=== PATIENT | female | born 1995 | race Caucasian/White ===

== ENCOUNTER → 2017-11-26 | Outpatient (CLI) | payer OTHER | END | disposition home or self-care (01) | LOC: US 12:21 | DX: O26.842 Uterine size-date discrepancy, second trimester (principal); Z3A.20 20 weeks gestation of pregnancy | CPT/HCPCS: 76805 ==

== ENCOUNTER 2018-04-11 06:07 | Inpatient (IN) | payer OTHER ==
[2018-04-10] MEDS: IV RINGERS,LACTATED 1000ML 1,000 ML IV SCH (21:45)
[~2018-04-11 06:07] MED LIST: DOCU-109 PO; IBUP-1060 PO; OXYC-323 PO; PNV1TABL25 PO
[2018-04-11] MEDS ORDERED: IV RINGERS,LACTATED 1000ML 1,000 ML IV SCH (06:45)
[2018-04-11] MEDS: IV RINGERS,LACTATED 1000ML 1,000 ML IV SCH ×2 (06:45→14:45)
[2018-04-11] MEDS ORDERED: OXYTOCIN 30 UNIT/500 ML PREMIX 500 ML IV PRN ×2 (06:45→09:00)
[2018-04-11] MEDS ORDERED: CITRIC ACID/SODIUM CITRATE 30 ML SOLUTION. PO PRN (06:45)
[2018-04-11] MEDS ORDERED: 0.9 % SODIUM CHLORIDE 10 ML DISP.SYRIN. IV PRN ×2 (06:45→09:00)
[2018-04-11 07:18] VITALS: BP 121/82
[2018-04-11] MEDS ORDERED: FAMOTIDINE 20 MG/2 ML VIAL ONE (07:20)
[2018-04-11] MEDS ORDERED: OXYTOCIN 10 UNIT/ML VIAL. ONE ×3 (07:20→08:57)
[2018-04-11] MEDS ORDERED: ONDANSETRON PF 4 MG/2 ML VIAL. ONE (07:20)
[2018-04-11] MEDS ORDERED: fentaNYL PF VIAL 100 MCG/2 ML VIAL ONE (07:21)
[2018-04-11] MEDS ORDERED: MORPHINE PF 5 MG/10 ML VIAL. ONE (07:21)
[2018-04-11] MEDS ORDERED: SUCCINYLCHOLINE 200 MG/10 ML VIAL. ONE (07:25)
[2018-04-11 07:34] LABS: BASO % 0 % (0-3); EOS % 1 % (0-3); HEMATOCRIT 35.4 % (36.0-47.0); HEMOGLOBIN 12.1 g/dL (12.0-15.5); LYMPH # 1.8 x10^3/uL (1.0-4.8); LYMPH % 31 % (24-48); MEAN CORPUSCULAR HEMOGLOBIN 30 pg (25-35); MEAN CORPUSCULAR HGB CONC 34 g/dL (31-37); MEAN CORPUSCULAR VOLUME 89 fL (79-100); MONO # 0.6 x10^3/uL (0.0-1.1); MONO % 10 % (0-9); NEUT # 3.3 x10^3uL (1.8-7.7); NEUT % 58 % (31-73); PLATELET COUNT 169 x10^3/uL (140-400); RED BLOOD COUNT 3.97 x10^6/uL (3.50-5.40); RED CELL DISTRIBUTION WIDTH 13.7 % (11.5-14.5); WHITE BLOOD COUNT 5.7 x10^3/uL (4.0-11.0)
--- NOTE | 2018-04-11 07:56 | PDOC1 ---
OB - History Hx of Present Care: Limited Care Ultrasounds: Normal mid trimester US Obstetrical Complications: None Medical Complications: None Past Family/Social History * Past Medical, Surgical, Family and Obstetric Histories reviewed from chart. Rubella: Immune RPR/VDRL: Negative GBS Status: Negative HBsAG: Negative OB - Chief Complaint & HPI Date of Admission: Date of Admission: Apr 11, 2018 at 06:07 Chief Complaint/History : 2 Para: 1 EGA: 39 Reason for admission: section Indication for : desires repeat Admission Nurse Assessment Rev: Yes OB - Admission Exam Physical Exam HEENT: Normal Heart: Regular Rate Lungs: Clear Abdomen: Gravid, Non tender, Soft Extremities: Edema Reflexes: Normal Cervical Dilatation: 1cm Effacement: 75% Station: -3 Membranes: Intact Heart Rate: Normal Accelerations: Accelerations Present Decelerations: No decelerations Contractions on Admission: >10 Minutes Apart Intensity: Mild Text A: 39 wks IUP Previous c/s P: Admit for repeat c/s. ESTEFANIA SPRAGUE Jr, MD Apr 11, 2018 07:56
[2018-04-11 08:09] LABS: BILIRUBIN,URINE NEGATIVE (NEG); CLARITY,URINE CLEAR; COLOR,URINE YELLOW; NITRITE,URINE NEGATIVE (NEG); PROTEIN,URINE NEGATIVE (NEG-TRACE); UROBILINOGEN,URINE 0.2 mg/dL (0.2 mg/dL)
[2018-04-11 08:10] LABS: SQUAMOUS EPITHELIAL CELL,UR MOD /LPF
[2018-04-11 08:11] LABS: BACTERIA,URINE FEW /HPF (0-FEW); RBC,URINE 0 /HPF (0-2); WBC,URINE OCC /HPF (0-4)
--- NOTE | 2018-04-11 08:56 | PDOC4 ---
OB Operative Note PRE OP DIAGNOSIS: Previoujs C- section POST OP DIAGNOSIS: Previous C- section OPERATION PERFORMED: R [facility] Surgeon Dr. Greene Anesthesia: Regional (Spinal) Blood Loss 500 ml Specimen placenta and infant OB Findings: Position (Vertex), Sex (Female), (8/9), Weight (6 Lb 10 oz) Complications none Additional Remarks ptESTEFANIA Catalan Jr, MD Apr 11, 2018 08:56
[2018-04-11] MEDS ORDERED: ZOLPIDEM 5 MG TABLET. PO PRN (09:00)
[2018-04-11] MEDS ORDERED: ONDANSETRON PF 4 MG/2 ML VIAL. IV PRN (09:00)
[2018-04-11] MEDS ORDERED: diphenhydrAMINE ORAL ELIXIR 12.5 MG/5 ML ML PO PRN (09:00)
[2018-04-11] MEDS ORDERED: MAG HYDROX/ALUMINUM HYD/SIMETH 30 ML ORAL.SUSP PO PRN (09:00)
--- NOTE | 2018-04-11 09:23 | OP ---
DATE OF SURGERY: PREOPERATIVE DIAGNOSES: 1. 39 weeks intrauterine . 2. Previous section x 1. POSTOPERATIVE DIAGNOSES: 1. 39 weeks intrauterine . 2. Previous section x 1. PROCEDURE: Repeat low transverse section. SURGEON: Estefania Greene MD ANESTHESIA: Spinal. ESTIMATED BLOOD LOSS: 500 mL. COMPLICATIONS: None. FINDINGS: Viable female , Apgars 8 and 9, weight 6 pounds 10 ounces. Three-vessel cord placenta delivered under gentle traction intact. SUMMARY: A 23-year-old 2, para 1 at 39 weeks, presented for repeat . She was counseled on risks, benefits and expectations and voiced clear understanding to proceed. DESCRIPTION OF PROCEDURE: The patient was taken to surgery suite and placed in dorsal supine position. She was prepped with ChloraPrep and draped in sterile fashion. After adequate anesthesia, a Pfannenstiel skin incision was made with scalpel down to and through the fascia. Fascia was extended laterally using curved Darby scissors. The superior edge of the fascia was grasped with two Chanell clamps and dissected free of the abdominal rectus muscle using blunt dissection with Bovie cautery. The same process took place inferiorly. The abdominal rectus muscles were then dissected bluntly at the midline. Peritoneum was grasped with 2 hemostats and entered sharply with Metzenbaum scissors. This incision was extended superiorly as well as inferiorly. The Tae ring retractor was placed. Low transverse hysterotomy incision was performed down to the amniotic sac. Hysterotomy incision was extended laterally and superiorly digitally. Amniotomy was performed with Allis clamp and moderate amount of clear fluid was then visualized. With the aid of fundal pressure, the head was delivered in a smooth atraumatic manner. With additional fundal pressure, the anterior shoulder was delivered, followed by posterior shoulder and rest of the female was delivered. was suctioned with bulb syringe orally and nasally, umbilical cord was clamped twice and cut. Viable female infant was handed to waiting nursing staff. Umbilical cord blood was then obtained. Three-vessel cord placenta delivered under gentle traction intact. The uterus was then exteriorized, cleared of clot and debris with a moist lap. The hysterotomy incision was reapproximated using 1-0 Vicryl suture in a running locked fashion. Uterus palpated firm. Fallopian tubes and ovaries appeared normal bilaterally. Posterior cul-de-sac was cleared of clot and debris with moist lap. The uterus was returned to the abdomen. Pericolic gutters were cleared of clot and debris with a moist lap. Hysterotomy incision was hemostatic. Interceed was placed over the hysterotomy incision in inverted T fashion. The Tae ring retractor was removed. Peritoneum was reapproximated with 1-0 Vicryl suture in running fashion. Fascia was reapproximated using 0 Vicryl suture in running fashion. Skin was reapproximated using 4-0 Vicryl suture in subcuticular manner. The patient tolerated the procedure well and was taken to recovery room in stable condition. Sponge and needle count correct x 3. ESTEFANIA GREENE MD DR: MESFIN/manish JOB#: [id number] / [id number]
[2018-04-11] MEDS: KETOROLAC 30 MG/ML VIAL. IV PRN ×2 (11:17→19:54)
[2018-04-11 12:20] VITALS: BP 117/67
[2018-04-11 13:00] VITALS: BP 128/74
[2018-04-11] MEDS ORDERED: DIPHTH,PERTUSS(ACELL),TET TOX 0.5 ML DISP.SYRIN. VAX IM ONE (13:45)
[2018-04-11 15:39] VITALS: BP 122/78
[2018-04-11] MEDS: FERROUS SULFATE 325 MG TABLET. PO SCH (17:00)
[2018-04-11 19:40] VITALS: BP 115/70
[2018-04-11 23:15] VITALS: BP 124/73
[2018-04-12] MEDS: KETOROLAC 30 MG/ML VIAL. IV PRN (02:05)
[2018-04-12 04:23] LABS: BASO % 0 % (0-3); EOS % 0 % (0-3); HEMATOCRIT 35.6 % (36.0-47.0); HEMOGLOBIN 12.1 g/dL (12.0-15.5); LYMPH # 1.2 x10^3/uL (1.0-4.8); LYMPH % 11 % (24-48); MEAN CORPUSCULAR HEMOGLOBIN 30 pg (25-35); MEAN CORPUSCULAR HGB CONC 34 g/dL (31-37); MEAN CORPUSCULAR VOLUME 90 fL (79-100); MONO # 0.9 x10^3/uL (0.0-1.1); MONO % 8 % (0-9); NEUT # 8.8 x10^3uL (1.8-7.7); NEUT % 81 % (31-73); PLATELET COUNT 149 x10^3/uL (140-400); RED BLOOD COUNT 3.96 x10^6/uL (3.50-5.40); RED CELL DISTRIBUTION WIDTH 13.7 % (11.5-14.5); WHITE BLOOD COUNT 10.9 x10^3/uL (4.0-11.0)
[2018-04-12 05:40] VITALS: BP 114/74
[2018-04-12] MEDS: IV RINGERS,LACTATED 1000ML 1,000 ML IV SCH ×3 (06:45→22:45)
[2018-04-12 08:00] VITALS: BP 120/81
--- NOTE | 2018-04-12 08:17 | PDOC ---
OB Progress Note Date of Service 04/12/18 Time of Evaluation 0815 Notes Pt. feeling well. Pain controlled. Lab Laboratory Tests Test 04/11/18 07:00 04/11/18 07:05 04/12/18 03:25 Urine Collection Type Unknown Urine Color Yellow Urine Clarity Clear Urine pH 7.0 Urine Specific [place] 1.015 Urine Protein Negative mg/dL (NEG-TRACE) Urine Glucose (UA) Negative mg/dL (NEG) Urine Ketones (Stick) Negative mg/dL (NEG) Urine Blood Negative (NEG) Urine Nitrite Negative (NEG) Urine Bilirubin Negative (NEG) Urine Urobilinogen Dipstick 0.2 mg/dL (0.2 mg/dL) Urine Leukocyte Esterase Small (NEG) Urine RBC 0 /HPF (0-2) Urine WBC Occ /HPF (0-4) Urine Squamous Epithelial Cells Mod /LPF Urine Bacteria Few /HPF (0-FEW) Urine Mucus Mod /LPF White Blood Count 5.7 x10^3/uL (4.0-11.0) 10.9 x10^3/uL (4.0-11.0) Red Blood Count 3.97 x10^6/uL (3.50-5.40) 3.96 x10^6/uL (3.50-5.40) Hemoglobin 12.1 g/dL (12.0-15.5) 12.1 g/dL (12.0-15.5) Hematocrit 35.4 % (36.0-47.0) 35.6 % (36.0-47.0) Mean Corpuscular Volume 89 fL (79-100) 90 fL (79-100) Mean Corpuscular Hemoglobin 30 pg (25-35) 30 pg (25-35) Mean Corpuscular Hemoglobin Concent 34 g/dL (31-37) 34 g/dL (31-37) Red Cell Distribution Width 13.7 % (11.5-14.5) 13.7 % (11.5-14.5) Platelet Count 169 x10^3/uL (140-400) 149 x10^3/uL (140-400) Neutrophils (%) (Auto) 58 % (31-73) 81 % (31-73) Lymphocytes (%) (Auto) 31 % (24-48) 11 % (24-48) Monocytes (%) (Auto) 10 % (0-9) 8 % (0-9) Eosinophils (%) (Auto) 1 % (0-3) 0 % (0-3) Basophils (%) (Auto) 0 % (0-3) 0 % (0-3) Neutrophils # (Auto) 3.3 x10^3uL (1.8-7.7) 8.8 x10^3uL (1.8-7.7) Lymphocytes # (Auto) 1.8 x10^3/uL (1.0-4.8) 1.2 x10^3/uL (1.0-4.8) Monocytes # (Auto) 0.6 x10^3/uL (0.0-1.1) 0.9 x10^3/uL (0.0-1.1) Eosinophils # (Auto) 0.0 x10^3/uL (0.0-0.7) 0.0 x10^3/uL (0.0-0.7) Basophils # (Auto) 0.0 x10^3/uL (0.0-0.2) 0.0 x10^3/uL (0.0-0.2) Treponema pallidum Antibody Nonreactive (Nonreactive) Laboratory Tests Test 04/12/18 03:25 White Blood Count 10.9 x10^3/uL (4.0-11.0) Red Blood Count 3.96 x10^6/uL (3.50-5.40) Hemoglobin 12.1 g/dL (12.0-15.5) Hematocrit 35.6 % (36.0-47.0) Mean Corpuscular Volume 90 fL (79-100) Mean Corpuscular Hemoglobin 30 pg (25-35) Mean Corpuscular Hemoglobin Concent 34 g/dL (31-37) Red Cell Distribution Width 13.7 % (11.5-14.5) Platelet Count 149 x10^3/uL (140-400) Neutrophils (%) (Auto) 81 % (31-73) Lymphocytes (%) (Auto) 11 % (24-48) Monocytes (%) (Auto) 8 % (0-9) Eosinophils (%) (Auto) 0 % (0-3) Basophils (%) (Auto) 0 % (0-3) Neutrophils # (Auto) 8.8 x10^3uL (1.8-7.7) Lymphocytes # (Auto) 1.2 x10^3/uL (1.0-4.8) Monocytes # (Auto) 0.9 x10^3/uL (0.0-1.1) Eosinophils # (Auto) 0.0 x10^3/uL (0.0-0.7) Basophils # (Auto) 0.0 x10^3/uL (0.0-0.2) Medications Current Medications Ringer's Solution 1,000 ml @ 1,000 mls/hr Q1H IV Last administered on at 07:49; Start 04/11/18 at 06:45; Stop 04/11/18 at 07:44; Status DC Ringer's Solution 1,000 ml @ 125 mls/hr Q8H IV Last administered on 04/10/18at 21:45; Start 04/11/18 at 06:45 Cefazolin Sodium/ Dextrose 50 ml @ 100 mls/hr 1X ONCE IV Last administered on 04/11/18at 07:51; Start 04/11/18 at 06:45; Stop 04/11/18 at 13:39; Status DC Sodium Chloride (Normal Saline Flush) 3 ml QSHIFT PRN IV AFTER MEDS AND BLOOD DRAWS; Start 04/11/18 at 06:45; Status Cancel Citric Acid/ Sodium Citrate (Bicitra) 30 ml 1X PRN PRN PO DYSPEPSIA Last administered on 04/11/18at 07:50; Start 04/11/18 at 06:45; Stop 04/11/18 at 13:39 ; Status DC Oxytocin/Sodium Chloride 500 ml @ 0 mls/hr CONT PRN PRN IV Post delivery bleeding; Start 04/11/18 at 06:45 Famotidine (Pepcid Vial) 20 mg STK-MED ONCE .ROUTE ; Start 04/11/18 at 07:20; Stop 04/11/18 at 13:39; Status DC Ondansetron HCl (Zofran) 4 mg STK-MED ONCE .ROUTE ; Start 04/11/18 at 07:20; Stop 04/11/18 at 13:39; Status DC Oxytocin (Pitocin) 10 unit STK-MED ONCE .ROUTE ; Start 04/11/18 at 07:20; Stop 04/11/18 at 13:39; Status DC Morphine Sulfate (Morphine Preservative Free) 5 mg STK-MED ONCE .ROUTE ; Start 04/11/18 at 07:21; Stop 04/11/18 at 13:39; Status DC Fentanyl Citrate (Fentanyl 2ml Vial) 100 mcg STK-MED ONCE .ROUTE ; Start at 07:21; Stop 04/11/18 at 13:39; Status DC Succinylcholine Chloride (Anectine) 200 mg STK-MED ONCE .ROUTE ; Start 04/11/18 at 07:25; Stop 04/11/18 at 13:39; Status DC Ephedrine Sulfate (Akovaz) 50 mg STK-MED ONCE .ROUTE ; Start 04/11/18 at 08:09; Stop 04/11/18 at 13:39; Status DC Sodium Chloride (Normal Saline Flush) 3 ml QSHIFT PRN IV AFTER MEDS AND BLOOD DRAWS; Start 04/11/18 at 09:00 Oxytocin/Sodium Chloride 500 ml @ 125 mls/hr CONT PRN IV EXCESSIVE POST- BLEEDING; Start 04/11/18 at 09:00; Stop 04/11/18 at 16:59; Status DC Ibuprofen (Motrin) 800 mg PRN Q8HRS PRN PO INFLAMMATION; Start 04/11/18 at 09: 00 Ondansetron HCl (Zofran) 4 mg PRN Q6HRS PRN IV NAUSEA/VOMITING; Start 04/11/18 at 09:00 Docusate Sodium (Colace) 100 mg PRN BID PRN PO CONSTIPATION; Start 04/11/18 at 09:00 Al Hydroxide/Mg Hydroxide (Mylanta Plus Xs) 30 ml PRN Q4HRS PRN PO HEARTBURN / GAS; Start 04/11/18 at 09:00 Simethicone (Gas-X) 80 mg PRN AFTMEALHC PRN PO GAS / BLOATING; Start 04/11/18 at 09:00 Diphenhydramine HCl (Benadryl Oral Elixir) 12.5 mg PRN Q6HRS PRN PO ITCHING; Start 04/11/18 at 09:00 Ferrous Sulfate (Feosol) 325 mg BIDWMEALS PO ; Start 04/11/18 at 17:00 Zolpidem Tartrate (Ambien) 5 mg PRN QHS PRN PO INSOMNIA, MAY REPEAT X1; Start 04/11/18 at 09:00 Oxycodone/ Acetaminophen (Percocet 5/325) 2 tab PRN Q4HRS PRN PO MODERATE PAIN , SEVERE PAIN; Start 04/11/18 at 09:00 Ketorolac Tromethamine (Toradol 30mg Vial) 30 mg PRN Q6HRS PRN IV INFLAMMATION/ PAIN PREVENTION Last administered on 04/12/18at 02:05; Start 04/11/18 at 09:00; Stop 04/16/18 at 08:59 Oxytocin (Pitocin) 10 unit STK-MED ONCE .ROUTE ; Start 04/11/18 at 08:57; Stop 04/11/18 at 13:39; Status DC Oxytocin (Pitocin) 10 unit STK-MED ONCE .ROUTE ; Start 04/11/18 at 08:57; Stop 04/11/18 at 13:39; Status DC Diphtheria/ Tetanus/Acell Pertussis (Boostrix) 0.5 ml ONCE ONCE VAX IM ; Start 04/11/18 at 13:45; Stop 04/11/18 at 13:46; Status DC Active Scripts Active Percocet 5-325 Mg Tablet (Oxycodone/Acetaminophen) 1 Each Tablet 1-2 Tab PO Q4- 6HRS Colace (Docusate Sodium) 100 Mg Capsule 1 Cap PO BID Ibuprofen 800 Mg Tablet 800 Mg PO PRN Q6HRS PRN Reported Tablet (Pnv Cmb#95/Ferrous Fumarate/Fa) 1 Each Tablet 1 Each PO DAILY Exam Abd: soft, non tender, fundus firm Incision site: clean, dry and intact Assessment POD# 1 s/p repeat c/s Plan of Care: Continue current Tx, Mgmt ESTEFANIA SPRAGUE Jr, MD Apr 12, 2018 08:17
[2018-04-12] MEDS: oxyCODONE/APAP 5/325 1 TAB TABLET PO PRN ×4 (08:37→21:29)
[2018-04-12] MEDS: FERROUS SULFATE 325 MG TABLET. PO SCH ×2 (08:37→16:51)
[2018-04-12] MEDS: SIMETHICONE 80 MG TAB.CHEW PO PRN ×2 (08:37→16:51)
[2018-04-12] MEDS: DOCUSATE SODIUM 100 MG CAPSULE. PO PRN ×2 (08:37→16:51)
[2018-04-12] MEDS: IBUPROFEN 800 MG TABLET. PO PRN ×2 (09:59→18:38)
[2018-04-12 14:48] VITALS: BP 117/77
[2018-04-12 20:00] VITALS: BP 121/76
[2018-04-13] MEDS: oxyCODONE/APAP 5/325 1 TAB TABLET PO PRN ×4 (01:56→17:41)
[2018-04-13 02:06] VITALS: BP 110/76
[2018-04-13] MEDS: IBUPROFEN 800 MG TABLET. PO PRN ×2 (04:37→17:15)
[2018-04-13 05:52] VITALS: BP 118/80
[2018-04-13] MEDS: FERROUS SULFATE 325 MG TABLET. PO SCH ×2 (07:53→09:55)
--- NOTE | 2018-04-13 08:13 | PDOC ---
OB Progress Note Date of Service 04/13/18 Time of Evaluation 0812 Notes Pt. feeling well. No complaints. Lab Laboratory Tests Test 04/12/18 03:25 White Blood Count 10.9 x10^3/uL (4.0-11.0) Red Blood Count 3.96 x10^6/uL (3.50-5.40) Hemoglobin 12.1 g/dL (12.0-15.5) Hematocrit 35.6 % (36.0-47.0) Mean Corpuscular Volume 90 fL (79-100) Mean Corpuscular Hemoglobin 30 pg (25-35) Mean Corpuscular Hemoglobin Concent 34 g/dL (31-37) Red Cell Distribution Width 13.7 % (11.5-14.5) Platelet Count 149 x10^3/uL (140-400) Neutrophils (%) (Auto) 81 % (31-73) Lymphocytes (%) (Auto) 11 % (24-48) Monocytes (%) (Auto) 8 % (0-9) Eosinophils (%) (Auto) 0 % (0-3) Basophils (%) (Auto) 0 % (0-3) Neutrophils # (Auto) 8.8 x10^3uL (1.8-7.7) Lymphocytes # (Auto) 1.2 x10^3/uL (1.0-4.8) Monocytes # (Auto) 0.9 x10^3/uL (0.0-1.1) Eosinophils # (Auto) 0.0 x10^3/uL (0.0-0.7) Basophils # (Auto) 0.0 x10^3/uL (0.0-0.2) Medications Current Medications Ringer's Solution 1,000 ml @ 1,000 mls/hr Q1H IV Last administered on at 07:49; Start 04/11/18 at 06:45; Stop 04/11/18 at 07:44; Status DC Ringer's Solution 1,000 ml @ 125 mls/hr Q8H IV Last administered on 04/10/18at 21:45; Start 04/11/18 at 06:45; Stop 04/13/18 at 00:00; Status DC Cefazolin Sodium/ Dextrose 50 ml @ 100 mls/hr 1X ONCE IV Last administered on 04/11/18at 07:51; Start 04/11/18 at 06:45; Stop 04/11/18 at 13:39; Status DC Sodium Chloride (Normal Saline Flush) 3 ml QSHIFT PRN IV AFTER MEDS AND BLOOD DRAWS; Start 04/11/18 at 06:45; Status Cancel Citric Acid/ Sodium Citrate (Bicitra) 30 ml 1X PRN PRN PO DYSPEPSIA Last administered on 04/11/18at 07:50; Start 04/11/18 at 06:45; Stop 04/11/18 at 13:39 ; Status DC Oxytocin/Sodium Chloride 500 ml @ 0 mls/hr CONT PRN PRN IV Post delivery bleeding; Start 04/11/18 at 06:45 Famotidine (Pepcid Vial) 20 mg STK-MED ONCE .ROUTE ; Start 04/11/18 at 07:20; Stop 04/11/18 at 13:39; Status DC Ondansetron HCl (Zofran) 4 mg STK-MED ONCE .ROUTE ; Start 04/11/18 at 07:20; Stop 04/11/18 at 13:39; Status DC Oxytocin (Pitocin) 10 unit STK-MED ONCE .ROUTE ; Start 04/11/18 at 07:20; Stop 04/11/18 at 13:39; Status DC Morphine Sulfate (Morphine Preservative Free) 5 mg STK-MED ONCE .ROUTE ; Start 04/11/18 at 07:21; Stop 04/11/18 at 13:39; Status DC Fentanyl Citrate (Fentanyl 2ml Vial) 100 mcg STK-MED ONCE .ROUTE ; Start at 07:21; Stop 04/11/18 at 13:39; Status DC Succinylcholine Chloride (Anectine) 200 mg STK-MED ONCE .ROUTE ; Start 04/11/18 at 07:25; Stop 04/11/18 at 13:39; Status DC Ephedrine Sulfate (Akovaz) 50 mg STK-MED ONCE .ROUTE ; Start 04/11/18 at 08:09; Stop 04/11/18 at 13:39; Status DC Sodium Chloride (Normal Saline Flush) 3 ml QSHIFT PRN IV AFTER MEDS AND BLOOD DRAWS; Start 04/11/18 at 09:00 Oxytocin/Sodium Chloride 500 ml @ 125 mls/hr CONT PRN IV EXCESSIVE POST- BLEEDING; Start 04/11/18 at 09:00; Stop 04/11/18 at 16:59; Status DC Ibuprofen (Motrin) 800 mg PRN Q8HRS PRN PO INFLAMMATION Last administered on at 04:37; Start 04/11/18 at 09:00 Ondansetron HCl (Zofran) 4 mg PRN Q6HRS PRN IV NAUSEA/VOMITING; Start 04/11/18 at 09:00 Docusate Sodium (Colace) 100 mg PRN BID PRN PO CONSTIPATION Last administered on 04/12/18at 16:51; Start 04/11/18 at 09:00 Al Hydroxide/Mg Hydroxide (Mylanta Plus Xs) 30 ml PRN Q4HRS PRN PO HEARTBURN / GAS; Start 04/11/18 at 09:00 Simethicone (Gas-X) 80 mg PRN AFTMEALHC PRN PO GAS / BLOATING Last administered on 04/12/18at 16:51; Start 04/11/18 at 09:00 Diphenhydramine HCl (Benadryl Oral Elixir) 12.5 mg PRN Q6HRS PRN PO ITCHING; Start 04/11/18 at 09:00 Ferrous Sulfate (Feosol) 325 mg BIDWMEALS PO Last administered on 04/12/18at 16: 51; Start 04/11/18 at 17:00 Zolpidem Tartrate (Ambien) 5 mg PRN QHS PRN PO INSOMNIA, MAY REPEAT X1; Start 04/11/18 at 09:00 Oxycodone/ Acetaminophen (Percocet 5/325) 2 tab PRN Q4HRS PRN PO MODERATE PAIN , SEVERE PAIN Last administered on 04/13/18at 08:03; Start 04/11/18 at 09:00 Ketorolac Tromethamine (Toradol 30mg Vial) 30 mg PRN Q6HRS PRN IV INFLAMMATION/ PAIN PREVENTION Last administered on 04/12/18at 02:05; Start 04/11/18 at 09:00; Stop 04/13/18 at 00:00; Status DC Oxytocin (Pitocin) 10 unit STK-MED ONCE .ROUTE ; Start 04/11/18 at 08:57; Stop 04/11/18 at 13:39; Status DC Oxytocin (Pitocin) 10 unit STK-MED ONCE .ROUTE ; Start 04/11/18 at 08:57; Stop 04/11/18 at 13:39; Status DC Diphtheria/ Tetanus/Acell Pertussis (Boostrix) 0.5 ml ONCE ONCE VAX IM ; Start 04/11/18 at 13:45; Stop 04/11/18 at 13:46; Status DC Active Scripts Active Percocet 5-325 Mg Tablet (Oxycodone/Acetaminophen) 1 Each Tablet 1-2 Tab PO Q4- 6HRS Colace (Docusate Sodium) 100 Mg Capsule 1 Cap PO BID Ibuprofen 800 Mg Tablet 800 Mg PO PRN Q6HRS PRN Reported Tablet (Pnv Cmb#95/Ferrous Fumarate/Fa) 1 Each Tablet 1 Each PO DAILY Exam Abd: soft, non tender, fundus firm Incision site: clean, dry and intact ESTEFANIA SPRAGUE Jr, MD Apr 13, 2018 08:13
[2018-04-13 11:15] VITALS: BP 115/73
[2018-04-13] MEDS: DOCUSATE SODIUM 100 MG CAPSULE. PO PRN (14:47)
[2018-04-13 15:20] VITALS: BP 129/84
[2018-04-13 20:39] VITALS: BP 145/97
[2018-04-14] MEDS: SIMETHICONE 80 MG TAB.CHEW PO PRN (00:25)
[2018-04-14] MEDS: DOCUSATE SODIUM 100 MG CAPSULE. PO PRN ×2 (00:26→08:49)
[2018-04-14 04:50] VITALS: BP 121/83
[2018-04-14] MEDS: IBUPROFEN 800 MG TABLET. PO PRN ×2 (04:54→12:28)
[2018-04-14] MEDS: FERROUS SULFATE 325 MG TABLET. PO SCH (08:00)
[2018-04-14] MEDS ORDERED: BISACODYL 10 MG SUPP.RECT. PR PRN (08:45)
[2018-04-14] MEDS: oxyCODONE/APAP 5/325 1 TAB TABLET PO PRN ×2 (08:49→15:11)
[2018-04-14 11:30] VITALS: BP 122/78
--- NOTE | 2018-04-14 12:29 | PDOC3 ---
OB DISCHARGE SUMMARY DATE OF ADMISSION: 04/11/18 DATE OF DISCHARGE: 04/14/18 REASON FOR ADMISSION: section INTRAPARTUM PROCEDURES: : Low Cerv Trans DISCHARGE DIAGNOSIS: Term Delivered DISCHARGE INFORMATION: Activity (ad ruthy), Diet (regular), Instructions (pelvic rest x 6 wks, no driving x 2 wks, no lifting > 20 lbs. x 4 wks.), Discharge to ( home) HOSPITAL COURSE term gestation presented for repeat c/s uncomplicated ESTEFANIA SPRAGUE Jr, MD Apr 14, 2018 12:29
--- NOTE | 2018-04-14 12:30 | DISCH ---
DISCHARGE INSTRUCTIONS Condition on Discharge Condition on Discharge: Stable Activity After Discharge Activity Instructions for Disc: Activity as tolerated Bathing Instructions: Shower-keep dressing dry, No Tub Bath until see Lifting Instructions after Dis: No heavy lifting, No pulling or pushing, Do not lift >10 pounds Exercise Instruction after Dis: Progress as tolerated Driving Instructions after Dis: No driving for 2 weeks Weight Bearing Status after Di: As tolerated Diet after Discharge Diet after Discharge: Regular Wound Incision Care Wound/Incision Care: Ice to area for comfort, Keep wound/cast CDI, May get incision wet Checks after Discharge Checks after discharge: Check your Temp as needed Contacting the DRGlenna after DC Call your doctor for: Concerns you may have Follow-Up Follow up with: Dr. Greene in 2 wks. ESTEFANIA GREENE Jr, MD Apr 14, 2018 12:30
[2018-04-14] MEDS ORDERED: IBUP-1060 PO (12:31)
[2018-04-14] MEDS ORDERED: DOCU-109 PO (12:31)
[2018-04-14] MEDS ORDERED: OXYC-323 PO (12:31)
== END 2018-04-14 18:36 | disposition home or self-care (01) | DRG 766 ==
LOC: 3 SO LND 06:07 → 3 NORTH 11:17
PROVIDERS: ADMIT Obstetrics & Gynecology; ATTEND Obstetrics & Gynecology
PROC: 10D00Z1 Extraction of Products of Conception, Low, Open Approach (ICD-10-PCS; principal; 2018-04-11)
PROC: 10900ZC Drainage of Amniotic Fluid, Therapeutic from Products of Conception, Open Approach (ICD-10-PCS; 2018-04-11)
DX: O34.211 Maternal care for low transverse scar from previous cesarean delivery (principal); Z37.0 Single live birth; Z3A.39 39 weeks gestation of pregnancy
CPT/HCPCS: 36415; 81001; 85025; 86592; 86850; 86900; 86901; 87086; C1781; J0330; J0690; J1885; J2270; J2405; J2590; J3010; J7030; J7120; S0028